=== PATIENT | male | born 1965 | race Caucasian/White ===

== ENCOUNTER → 2016-12-31 | Outpatient (CLI) | payer BC ==
[~2016-12-31] MED LIST: AMLO2.5T PO; ASPI81TA28 PO; DEXTTAB PO; TPRSR/50 PO
--- NOTE | 2017-01-01 05:29 | PAP/PSG TECHNICIAN REPORT ---
[facility] Embroidery Operator Polysomnogram Report Study name: None Report date: 01/01/2017 Study date: 12/31/2016 Referring Physician: JEANA RASHID PA-C Name: EDSON ADHIKARI Interpreting Physician: Kyle Pacheco M.D. Date of : 1965 Embroidery Operator: Joanna Humphreys [facility]. Sex: Male Age: 51 Study Type: PSG PAP Weight: 246 lbs Height: 51 years, Height 5' 7" BMI: 38.52 Medications: AMLODIPINE BESYLATE-VALSARTAN 5-160 MG, METOPROLOL 50 MG Patient History 51 yr-old male here for a new CPAP treatment study. He was found to be positive for DESTINEE via a home sleep study. He chose a Quattro Air full face mask size medium from [employer]. The test was started on room air and 4 CMH2O. He then requested to have more airflow, so the pressure was then increased to 6 CMH2O. ETCO2 testing was not utilized during this study. Room 1 Parameters Monitored NPSG: E1-M2, E2-M1, Fp1-M2, Fp2-M1, F3-M2, F4-M2, F4-M1, C3-M2, C4-M2, C4-M1, O1-M2, O2-M2, O2-M1, T3-M2, T4-M1, P3-M2, P4-M1, CHIN1, CHIN2, HR, EKG, Legs, PFLOW, SNOR, FLOW, CFLOW, Tidal Volume, THOR, ABDO, SpO2, PLTH, CPRESS, ETCO2 Wave, ETCO2, pH Sleep Architecture Sleep Stages Time at Lights Off 10:15:36 PM STAGES Time (min.) TST (%) Time at Lights On 4:33:06 AM Wake 180.5 -- Total Recording Time (TRT) 377.50 min. N1 15.0 8 Total Sleep Period (TSP) 332.0 min. N2 139.5 71 Total Sleep Time (TST) 197.0min. N3 21.0 11 Awake Time 180.5 min. REM 21.5 11 Wake after Sleep Onset 152.5 min. Sleep Efficiency (SE) 52 % Sleep Onset Latency (GAIL) 28.0 min. Number of Stage 1 Shifts None Awakenings 8 Stage Changes 48 Number of REM periods 2 REM 21.5 11 REM Latency 65.5 min. NREM 175.5 89 Body Position Analysis Supine Right Left Side Prone Vertical Total Sleep Time (min.) 236.1 110.5 0.0 110.53 0.0 0.0 Total Sleep Time (%) 44% 56% 0% 56 0% N/A% Total Sleep Time REM (min.) 5.0 16.5 0.0 None 0.0 0.0 Total Sleep Time NREM (min.) 81.5 94.0 0.0 None 0.0 0.0 Intermittent Wake (min.) 149.6 30.9 0.0 None 0.0 0.0 Total Sleep Period (%) 63% None None None None None Arousals Myoclonus (PLM) * Events Count Index Events Count Index Spontaneous 14 4 Events Awake (PLMW) 184 61.2 Respiratory 1 0.3 Events Asleep w/ Arousal (PLMA) 9 2.7 PLM 9 3 Events Asleep w/o Arousal (PLMS) 298 90.8 Snoring 2 1 Total Asleep 307 93.5 Total 26 8 Total 491 78 Respiratory Analysis * CA OA MA CH H RERA Total Count 0 0 0 0 6 0 6 Index 0.0 0.0 0.0 0 1.8 0 1.8 Mean Duration 0.0 0.0 0.0 0.00 18.1 0.0 18.1 Longest Duration 0.0 0.0 0.0 0.00 0.0 0.0 25.6 Respiratory Event Summary Total Supine ~Supine Right Left Prone REM NREM Apneas Count 0 0 0 0 N/A N/A 0 0 Index 0.0 0 0 0.0 N/A N/A 0 0 Hypopneas (4% Desat) Count 6 4 2 2 N/A N/A 2 4 Index 1.8 2.8 1 1.1 N/A N/A 5.6 1.4 Apneas & All Hypopneas Count 6 4 2 2 N/A N/A 2 4 Index 1.8 3 1 1 N/A N/A 5.6 1.4 Respiratory Events (Canvas Worker+All Hyp+RERA) Count 6 4 2 2 N/A N/A 2 4 Index 1.8 3 1 1.1 N/A N/A 5.6 1.4 Respiratory Related Arousal Count 1 4 0 0 N/A N/A 1 0 Index 0.3 1 0 0 N/A N/A 3 0 Snoring Analysis Supine Right Left Prone REM NREM Total Snore duration 12.9 min Snores count 259 310 N/A N/A 1 568 569 Snore mean duration 1.4 Sec Snores index 180 168 N/A N/A 2.8 194.2 173.3 TST with snoring (%) 6.5% Desaturation Event Summary: Minimum %SpO2 Event Count Mean/Min/Max Duration(sec.) Desaturation Index % Time In Bed > 90 58 26.8 / 4.5 / 60.0 11.7 86.2 86 - 90 4 14.8 / 7.5 / 24.8 5.1 13.6 81 - 85 0 N/A 0.0 0.1 76 - 80 0 N/A 0.0 0.0 71 - 75 0 N/A 0.0 0.0 66 - 70 0 N/A 0.0 0.0 61 - 65 0 N/A 0.0 0.0 56 - 60 0 N/A 0.0 0.0 51 - 55 0 N/A 0.0 0.0 < 50 0 N/A 0.0 0.0 Total REM NREM Awake <50% 0.0 min. 0.0 min. 0.0 min. 0.0 min. 51 - 60% 0.0 min. 0.0 min. 0.0 min. 0.0 min. 61 - 70% 0.0 min. 0.0 min. 0.0 min. 0.0 min. 71 - 80% 0.1 min. 0.0 min. 0.0 min. 0.1 min. 81 - 90% 47.6 min. 2.6 min. 32.8 min. 12.1 min. 91 - 100% 297.5 min. 18.9 min. 142.5 min. 136.2 min. Average 92 92 92 93 Minimum SpO2 79 84 87 79 Desaturation Event Index 9.4 8.4 5.1 14.0 # Desat. Events below 89% 12 2 5 5 Time(%) with Saturation below 89% 2.7 0.4 1.5 0.8 Time(min.) with Saturation below 89% 9.3 1.4 5.2 2.7 Time (mins) REM (mins) NREM (mins) % of TST SpO2 Below 90% 15 3 N12 7.9 SpO2 Below 88% 3 0 0 1 Heart Rate Analysis Min (bpm) Max (bpm) Average (bpm) Awake 55 127 74 NREM 55 99 69 REM 61 91 74 Overall 55 99 69 Supplemental O2 Values Minimum O2 level: None Value Start Time End Time Embroidery Operator Comments Mr. Adhikari slept in the right, left, and supine positions. No cardiac arrhythmias were noted. PLMs were noted. No bruxism noted. CPAP was initiated at +4 CMH2O and up-titrated to a level of +7 CMH2O, Cflex 2 which nearly eliminated all respiratory events and snoring. A Quattro Air full face mask size medium from [employer] was used during titration He awoke to use the restroom one time during the night. He woke around 2:15 to use the restroom. He then could not get back to sleep and took a couple of breaks with wearing the CPAP. Finally, at 4:30 am, he stated that he could not get back to sleep and wished to leave at that time. He stated that this can be normal to sleep for a while then be wide awake. Mr. Adhikari stated that he slept almost the same as usual. The final report will be interpreted and signed by a sleep physician. The completed physician report will then be placed in the patient medical record. Therapy Event: Therapy (cm H20) 4 6 7 Total Time at Pressure (min.) 0.2 234.3 143.0 TST at Pressure (min.) 0.0 190.5 6.5 # Periods 1 1 1 Sleep Onset (min.) N/A 27.8 0.0 REM Onset (min.) N/A 93.3 N/A Sleep Efficiency % 0 81 4 Wakefulness (%) 100.0 18.7 95.5 Wakefulness (min.) 0.2 43.8 136.5 NREM 1 (%) 0.0 6.2 0.3 NREM 1 (min.) 0.0 14.5 0.5 NREM 2 (%) 0.0 57.0 4.2 NREM 2 (min.) 0.0 133.5 6.0 NREM 3 (%) 0.0 9.0 0.0 NREM 3 (min.) 0.0 21.0 0.0 REM (%) 0.0 9.2 0.0 REM (min.) 0.0 21.5 0.0 # Arousals N/A 24 2 Arousal Index N/A 7.6 18.5 # Snore N/A 517 52 Snore Index N/A 162.8 480.8 AHI N/A 1.9 0.0 AHI Supine N/A 3.0 0.0 AHI Non-Supine N/A 1.1 0.0 NREM AHI N/A 1.4 0.0 REM AHI N/A 5.6 N/A RDI N/A 1.9 0.0 # Obstructive N/A 0 0 # Central Ap N/A 0 0 # Mixed N/A 0 0 # Hypopneas N/A 6 0 RERAS N/A 0 0 Total Respiratory Events N/A 6 0 Time Below SpO2 89.00% (min.) 0.0 6.6 0.0 Mean NREM SpO2 (%) N/A 92 91 Mean REM SpO2 (%) N/A 92 N/A Mean Sleep SpO2 (%) N/A 92 91 Min NREM SpO2 (%) N/A 87 90 Min REM SpO2 (%) N/A 84 N/A Position Supine (min.) 0.0 80.5 6.0 Position Non-supine (min.) 0.0 110.0 0.5 LM Index Sleep N/A 92.9 110.9 LM Index NREM N/A 92.7 110.9 LM Index REM N/A 94.9 N/A Mean Heart Rate (bpm) N/A 69 66 Min Heart Rate (bpm) N/A 55 56 CPAP REPORT Therapy Detail Time / Page # Comment CPAP 4 cm H2O Full Face Mask Flex Pressure Relief Humidifier on 10:09:23 PM / pg. 220 CPAP 6 cm H2O Full Face Mask Flex Pressure Relief Humidifier on 10:15:51 PM / pg. 233 INCREASED TO 6 CM AT THE REQUEST OF THE PT FOR MORE AIRFLOW CPAP 7 cm H2O Full Face Mask Flex Pressure Relief Humidifier on 2:10:07 AM / pg. 702 INCREASED FOR SNORING AND A COUPLE OF HYPOPNEAS
--- NOTE | 2017-01-02 09:04 | POLYSOMNOGRAPH REPORT ---
CLINICAL DATA: 51-year-old male with BMI of 38.52 referred by Taryn Pratt PA-C and Dr. Joe Garcia for a CPAP titration study. He had a home sleep study performed which showed sleep apnea of moderate severity and was referred for a CPAP titration study. He used a Quattro Air full facemask size medium from [employer]. SLEEP ARCHITECTURE: Total sleep period was 332 minutes. Total sleep time was 197 minutes divided between 175.5 minutes of non-REM sleep and 21.5 minutes of REM sleep. Sleep onset latency was 28 minutes. REM latency was 65.5 minutes. Sleep efficiency was severely reduced at 52%. Wake after sleep onset was 152.5 minutes. Sleep consisted of stage N1 8%, N2 71%, N3 11%, REM 11%. AROUSAL DATA: 26 arousals were recorded for an index of 8 per hour. PLM DATA: Markedly elevated limb movements during sleep were noted. There were 307 limb movements during sleep noted for an index of 93.5 per hour with arousal index of 2.7 per hour. RESPIRATORY DATA: The AHI was 1.8. There were 6 hypopneic episodes. The mean duration of hypopnea was 18.1 seconds. OXIMETRY DATA: Transient hypoxemia was seen. Oxygen sheyla was 84%. During REM sleep mean saturation was 92%. Time below 88% was 3 minutes. EKG: Heart rates ranged from 55-99 beats per minute. No arrhythmias were noted. COATING MANAGER'S COMMENTS: The patient slept in the right, left, and supine positions. The patient was started on CPAP and titrated up to his final pressure setting of 7 cm of water pressure, C-Flex setting #2. At the final pressure setting, the patient slept for 6.5 minutes with an AHI of 0. At 6 cm of water pressure, he slept for 190.5 minutes with an AHI of 1.9. He awoke at 2:15 AM to use the bathroom and then had a difficult time getting back to sleep. IMPRESSION: Moderate obstructive sleep apnea corrected with CPAP 7 cm water pressure, C-flex setting #2, [employer] Quattro Air full facemask size medium. RECOMMENDATIONS: The patient should be started on the above noted treatment regimen and seen back in followup within 90 days to document efficacy and compliance. [facility]
== END | disposition home or self-care (01) ==
LOC: C.NEUR 20:00
PROVIDERS: ATTEND Internal Medicine
DX: G47.33 Obstructive sleep apnea (adult) (pediatric) (principal)

== ENCOUNTER → 2018-03-02 | Outpatient (CLI) | payer BC ==
[2018-03-02 12:37] LABS: HEMOGLOBIN A1C 6.7 % (4.5-5.6)
[2018-03-02 12:41] LABS: ALT/SGPT 45 U/L (12-78); AST/SGOT 27 U/L (15-37); BLOOD UREA NITROGEN 17 mg/dl (7-18); CALCIUM 9.1 mg/dl (8.5-10.1); CARBON DIOXIDE 29 mmol/L (21-32); CHOLESTEROL 193 mg/dl (0-200); CREATININE 0.82 mg/dl (0.60-1.40); GLUCOSE 124 mg/dl (70-99); SODIUM 138 mmol/L (136-145)
[2018-03-02 12:42] LABS: ALKALINE PHOSPHATASE 81 U/L (45-117); LDL CHOLESTEROL CALCULATED 116 mg/dl; TOTAL PROTEIN 7.6 gm/dl (6.4-8.2)
== END | disposition home or self-care (01) ==
LOC: C.LAB 10:16
PROVIDERS: ATTEND Physician Assistant Medical
DX: Z00.00 Encounter for general adult medical examination without abnormal findings (principal); I10 Essential (primary) hypertension; E78.5 Hyperlipidemia, unspecified; R73.03 Prediabetes

== ENCOUNTER 2024-05-10 23:14 | Inpatient (IN) ==
[2024-05-10] MEDS: SODIUM CHLORIDE 0.9% 1,000 ML IV ONE (23:31)
[2024-05-10] MEDS: ONDANSETRON INJ 2 MG/ML 2 ML VIAL IV STA (23:31)
[2024-05-10 23:50] LABS: Basophils # (auto) 0.04 K/uL (0.00-0.20); Basophils % (auto) 0.2 %; Eosinophils # (auto) 0.01 K/uL (0.00-0.50); Eosinophils % (auto) 0.1 %; Hematocrit (blood only) 48.1 % (42.0-52.0); Hemoglobin 16.6 g/dl (14.0-18.0); Immature Granulocytes # (auto) 0.07 K/uL (0.01-0.20); Immature Granulocytes % (auto) 0.4 %; Lymphocytes # (auto) 1.36 K/uL (1.20-3.40); Lymphocytes % (auto) 7.9 %; Mean Corpuscular Hemoglobin 27.3 pg (25.0-34.0); Mean Corpuscular Hgb Conc 34.5 g/dL (32.0-36.0); Mean Corpuscular Volume 79.1 fL (80.0-100.0); Mean Platelet Volume 10.2 fL (9.4-12.4); Monocytes # (auto) 1.12 K/uL (0.11-0.59); Monocytes % (auto) 6.5 %; Neutrophils # (auto) 14.55 K/uL (1.40-6.50); Neutrophils % (auto) 84.9 %; Platelet Count 214 K/uL (130-400); RDW Coefficient of Variation 13.6 % (11.5-14.5); RDW Standard Deviation 38.5 fL (36.4-46.3); Red Blood Count 6.08 M/uL (4.70-6.10); White Blood Count 17.15 K/ul (4.8-10.8)
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
[2024-05-11 00:03] LABS: Albumin Globulin Ratio 1.7 (0.9-2); Albumin Level 5.1 gm/dl (3.4-5.0); BUN Creatinine Ratio 29.6 (10-20); Bilirubin,Total 1.1 mg/dl (0.2-1.0); Calcium 10.5 mg/dl (8.6-10.3); Est GFR (Non-African American) 96.6 ml/min; Potassium 3.9 mmol/L (3.5-5.1); Total Protein 8.1 gm/dl (6.0-8.3)
[2024-05-11 00:09] LABS: Troponin I High Sensitivity 4.5 pg/ml (0-20)
[2024-05-11] MEDS: OPTIRAY 320 100ml IV ONE (00:17)
[2024-05-11 00:25] LABS: INR 1.1 (0.9-1.1); Prothrombin Time 11.4 Seconds (9.0-12.0)
[2024-05-11] MEDS: ACETAMINOPHEN 1,000 MG/100 ML VIAL IV STA (00:34)
[2024-05-11 00:35] LABS: Adenovirus PCR Not Detected (NotDetected); Bordetella parapertussis PCR Not Detected (NotDetected); Bordetella pertussis PCR Not Detected (NotDetected); Chlamydia pneumoniae PCR Not Detected (NotDetected); Coronavirus 229E PCR Not Detected (NotDetected); Coronavirus CoV-2 (COVID19)PCR Not Detected (NotDetected); Coronavirus HKU1 PCR Not Detected (NotDetected); Coronavirus NL63 PCR Not Detected (NotDetected); Coronavirus OC43PCR Not Detected (NotDetected); Human Metapneumovirus PCR Not Detected (NotDetected); Influenza A PCR Not Detected (NotDetected); Influenza B PCR Not Detected (NotDetected); Mycoplasma pneumoniae PCR Not Detected (NotDetected); Parainfluenza Virus 1 PCR Not Detected (NotDetected); Parainfluenza Virus 2 PCR Not Detected (NotDetected); Parainfluenza Virus 3 PCR Not Detected (NotDetected); Parainfluenza Virus 4 PCR Not Detected (NotDetected); Respiratory Syncytial VirusPCR Not Detected (NotDetected); Rhinovirus/Enterovirus PCR Not Detected (NotDetected)
[2024-05-11 01:16] LABS: Appearance Urine Clear (Clear); Bacteria Urine Automated None Seen (None Seen); Bilirubin Urine Negative (Negative); Blood Urine Negative (Negative); Cast Urine Automated 0-2 /lpf (0-2); Color Urine Yellow; Epithelial Cell Urine Auto 0-2 /hpf (0-2); Glucose Urine UA 3+ (Negative); Ketones Urine 2+ (Negative); Leukocyte Esterase Urine Negative (Negative); Nitrite Urine Negative (Negative); Protein Urine Trace (Negative); RBC Urine Automated 0-2 /hpf (0-2); Specific Gravity Urine > 1.045 (1.000-1.030); Urobilinogen Urine Negative (Negative); WBC Urine Automated 0-5 /hpf (0-5)
--- NOTE | 2024-05-11 01:41 | CT Scan Report ---
Exam(s): CT ABDOMEN + PELVIS With Contrast IV Amt: 91 ml optiray 320 EXAM: CT Abdomen and Pelvis With Intravenous Contrast CLINICAL HISTORY: Reason for exam: generalized abdominal pain; vomiting. TECHNIQUE: Axial computed tomography images of the abdomen and pelvis with intravenous contrast. CTDI is 27 mGy and DLP is 1363 mGy-cm. Automated exposure control was utilized for the study. A dose lowering technique was utilized adhering to the principles of ALARA. CONTRAST: Patient received 91 ml optiray 320 of IV contrast COMPARISON: No relevant prior studies available. FINDINGS: Lung bases: Trace amount of subsegmental atelectasis in the left lung base. ABDOMEN: Liver: There is fatty infiltration of the liver. No focal liver lesion is seen. Gallbladder and bile ducts: Unremarkable. No calcified stones. No ductal dilation. Pancreas: Unremarkable. No mass. No ductal dilation. Spleen: Unremarkable. No splenomegaly. Adrenals: Unremarkable. No mass. Kidneys and ureters: Unremarkable. No solid mass. No hydronephrosis. Stomach and bowel: There is a 2.5 cm left inguinal hernia. A short segment of the sigmoid colon dips into the upper 2 cm of this hernia. No signs of obstruction or acute inflammation at that point. Mild diverticulosis of the sigmoid colon. No evidence of acute diverticulitis. PELVIS: Appendix: The appendix is dilated measuring 13 mm with mild surrounding inflammation consistent with acute appendicitis. No signs of rupture or abscess. Bladder: Unremarkable. No mass. Reproductive: Unremarkable as visualized. ABDOMEN and PELVIS: Intraperitoneal space: Unremarkable. No free air. No significant fluid collection. Bones/joints: Mild to moderate degenerative changes throughout the spine. No acute fracture or subluxation. Soft tissues: See above. Vasculature: Unremarkable. No abdominal aortic aneurysm. Lymph nodes: Unremarkable. No enlarged lymph nodes. IMPRESSION: The appendix is dilated measuring 13 mm with mild surrounding inflammation consistent with acute appendicitis. No signs of rupture or abscess. Communications: Call Doctor Appendicitis Electronically signed by: Honorio Pastor MD 05/11/24 01:41 AM
[2024-05-11] MEDS: fentaNYL citrate PF 100 MCG/2 ML VIAL IV STA (01:55)
[2024-05-11] MEDS: PIPERACILLIN/TAZOBACTAM 4.5 GM/100 ML BAG IV ONE (01:58)
[2024-05-11] MEDS ORDERED: ONDANSETRON INJ 2 MG/ML 2 ML VIAL IV PRN ×2 (02:00→08:24)
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
[2024-05-11] MEDS ORDERED: Nursing to Pharmacy Communication SCH (02:15)
[2024-05-11] MEDS: MoRPHine SULFATE 4 MG/ML 1 ML CARP\\VIAL IV PRN (02:19)
[2024-05-11] MEDS: SODIUM CHLORIDE 0.9% 1,000 ML IV SCH (02:19)
[2024-05-11] MEDS ORDERED: GLUCAGON FOR INJ 1 MG VIAL SQ PRN (03:53)
[2024-05-11] MEDS ORDERED: GLUCOSE 40% GEL 15 GM TUBE PO PRN (03:53)
[2024-05-11] MEDS ORDERED: CARBOHYDRATES FOR HYPOGLYCEMIA PO PRN (03:53)
[2024-05-11] MEDS ORDERED: GLUCOSE 10 TAB/TUBE PO PRN (03:53)
[2024-05-11] MEDS ORDERED: DEXTROSE 50% 50 ML SYRINGE IV PRN (03:53)
[2024-05-11] MEDS: ACETAMINOPHEN 1,000 MG/100 ML VIAL IV PRN (04:05)
[2024-05-11] MEDS: PIPERACILLIN/TAZOBACTAM 4.5 GM in DEXTROSE 5% MINI-B 100 ML IV SCH (06:00)
[2024-05-11] MEDS: INSULIN ASPART PER UNIT CHARGE SC SCH ×2 (06:14→17:08)
--- NOTE | 2024-05-11 06:50 | XRay Report ---
XR chest 1V portable HISTORY: 58 years-old Male pre-op preoperative exam COMPARISON: 01/09/2016 TECHNIQUE: AP view of the chest FINDINGS: Cardiac silhouette is mildly enlarged. No pneumothorax or pleural effusion. The lungs are clear. Bone s appear grossly intact. IMPRESSION: No acute process. ACT 112: Negative or not required by law. The above report was generated using voice recognition software. It may contain grammatical, syntax o r spelling errors. Electronically signed by: Fahran Chavez M.D. 05/11/2024 6:49 AM
[2024-05-11] MEDS ORDERED: MIDAZOLAM HCL 1 MG/ML 2ML VIAL ONE (08:06)
[2024-05-11] MEDS ORDERED: fentaNYL citrate PF 100 MCG/2 ML VIAL ONE ×2 (08:07→10:07)
[2024-05-11] MEDS ORDERED: PROMETHAZINE HCL 6.25 MG in SODIUM CHLORIDE 0.9% 50 ML IV PRN (08:24)
[2024-05-11] MEDS ORDERED: ePHEDrine sulfate 50 MG/ML AMP IV PRN (08:24)
[2024-05-11] MEDS ORDERED: ATROPINE SULFATE 0.1 MG/ML 10ML SYR IV PRN (08:24)
[2024-05-11] MEDS ORDERED: fentaNYL citrate PF 100 MCG/2 ML VIAL IV PRN (08:24)
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
[2024-05-11] MEDS: METOPROLOL SUCC 50MG EXT REL TAB PO SCH (08:37)
[2024-05-11] MEDS: LANTUS PER UNIT CHARGE SQ SCH (08:37)
[2024-05-11] MEDS ORDERED: ONDANSETRON INJ 2 MG/ML 2 ML VIAL ONE (10:03)
[2024-05-11] MEDS ORDERED: SUGAMMADEX SODIUM 200 MG/2 ML VIAL IV ONE (10:03)
[2024-05-11] MEDS ORDERED: DEXAMETHASONE SOD INJ 4 MG/ML VIAL ONE (10:03)
[2024-05-11] MEDS ORDERED: ROCURONIUM BROMIDE 10 MG/ML 5 ML VIAL IV ONE (10:03)
[2024-05-11] MEDS ORDERED: PROPOFOL IV EMULSION 10 MG/ML 20 ML VIAL IV ONE (10:03)
[2024-05-11] MEDS ORDERED: SUCCINYLCHOLINE CHLORIDE 20 MG/ML 10 ML VIAL IV ONE (10:04)
[2024-05-11] MEDS ORDERED: LIDOCAINE 2% 2 ML VIAL/AMP(20MG/ML) INFIL ONE (10:04)
[2024-05-11] MEDS: BUPIVACAINE 0.5 % 5 MG/1 ML MPF 30ML VIAL ONE (10:31)
--- NOTE | 2024-05-11 10:49 | Operative Report ---
PG Post Operative Report Pre & Post Diagnosis Operation Date: 05/11/24 07:00 Pre-Op Diagnosis: Acute Appendicitis Post-Op Diagnosis: Acute Appendicitis I identified the patient and participated in the time-out.: Yes Procedure Operation Date: 05/11/24 07:00 Actual Procedures p Robotic Laparoscopic Appendectomy(Not Applicable) - Kei Matamoros DO Surgeon Kei Matamoros DO [employer] Performance Engineer Rudolph Torrez NP Estimated Blood Loss 7 Findings See Below Acute gangrenous appendicitis Specimens Appendix Drains None Anesthesia Type General Complications None Indications Patient presented with physical exam and CT findings for acute appendicitis Description of Procedure The patient was brought back to the operating room and placed on the operating table in supine position. He was connected to cardiac and oxygen monitoring, SCDs were applied to bilateral lower extremities. General anesthesia was administered and a secure airway was established. Steve catheter was inserted. The abdomen was prepped and draped in typical sterile fashion. The location for 3 robotic trocar sites was mapped out and marked on the patient's abdomen with a sterile marking pen. Local anesthetic was injected at all sites prior to incision and trocar insertion. Pneumoperitoneum was established to local pressure 15 mmHg using a Veress needle at the incision just lateral to the umbilicus. Once this pressure was reached, an 8 mm robotic trocar was inserted using direct visualization with the laparoscope and Visiport. 2 additional tr ocars were inserted using direct visualization at the right upper quadrant and left lower quadrant. A 12 mm robotic trocar was used at the right upper quadrant while an 8 mm robotic trocar was used at the left lower quadrant. The OR table was placed in left side down and Trendelenburg position. The robot was docked and targeted. Instruments were loaded. Once at the console, the appendix was identified in the right lower quadrant surrounded by fibrinous exudate. The appendix appeared to be thickened and necrotic. The appendix was mildly dissected away from the retrocecal area. A window was made between the mesoappendix and the base of the appendix. The base of the appendix was ligated and transected using a white load robotic stapler. The mesoappendix was ligated and transected using a vessel sealer. There was bleeding from the appendiceal artery with this so a white loaded stapler was used to ligate and control this vessel further. The right lower quadrant was copiously irrigated and suctioned to clear her blood away. The staple lines were checked thoroughly for bleeding. There was no further bleeding. The appendix was placed in an Endo Catch bag and removed from the abdomen. This was sent in a label container to pathology for further analysis. Additional stable clips were removed from the area. The right lower quadrant was checked multiple times again and there was no bleeding CO2 insufflation was discontinued. Omentum was used to cover the area and pneumoperitoneum was evacuated as instruments were also removed. The robot was undocked. The patient was returned to neutral position. The right upper quadrant 12 mm port site was closed at the level of the fascia with 0 Vicryl sutures. Additional local anesthetic was injected at all 3 port sites. The skin at all 3 incisions was closed using 4-0 Vicryl suture. The abdomen was wiped clean and dried. Each incision was dressed with Dermabond. The patient tolerated the procedure well. He was awakened from anesthesia, the Steve catheter was removed and he was transferred to recovery in stable condition. I attest to the content of the Intraoperative Record and any orders documented therein. Any exceptions are noted below.
[2024-05-11] MEDS ORDERED: oxyCODONE HCL IR 5 MG TAB (IMMEDIATE RELEASE) PO PRN ×2 (11:41)
[2024-05-11] MEDS ORDERED: MoRPHine SULFATE 4 MG/ML 1 ML CARP\\VIAL IV PRN (11:41)
[2024-05-11] MEDS ORDERED: MoRPHine SULFATE 2 MG/ML CARP IV PRN (11:41)
--- NOTE | 2024-05-11 11:57 | Anesthesiology Progress Note ---
Date of Service May 11, 2024 Anesthesia Post Procedure Vital Signs Vital Signs: Temp Pulse Pulse Pulse Resp BP BP 05/11/24 11:45 37.3 C 83 16 124/77 05/11/24 11:35 85 15 127/78 05/11/24 11:25 87 21 103/60 05/11/24 11:15 90 17 127/76 05/11/24 11:05 92 H 16 138/77 05/11/24 10:58 36.4 C L 89 16 134/77 05/11/24 08:17 36.8 C 68 18 139/84 05/11/24 07:35 05/11/24 07:16 36.5 C 83 16 151/75 H 05/11/24 03:30 05/11/24 03:30 05/11/24 03:30 36.4 C L 71 16 153/83 H 05/11/24 03:03 72 16 159/94 H 05/11/24 02:00 69 13 149/89 H 05/11/24 01:03 71 20 157/91 H 05/11/24 00:33 84 21 159/101 H 05/11/24 00:00 75 18 162/88 H 05/10/24 23:39 74 15 05/10/24 23:39 68 05/10/24 23:31 73 18 05/10/24 23:19 36.5 C 85 16 148/93 H Pulse Ox O2 Del Method O2 Flow Rate 05/11/24 11:45 93 Nasal Cannula 3 05/11/24 11:35 94 Nasal Cannula 2 05/11/24 11:25 91 Room Air 05/11/24 11:15 93 Oxymask 4 05/11/24 11:05 95 Oxymask 4 05/11/24 10:58 97 Oxymask 6 05/11/24 08:17 97 Room Air 05/11/24 07:35 Room Air 05/11/24 07:16 96 Room Air 05/11/24 03:30 CPAP 05/11/24 03:30 CPAP 05/11/24 03:30 97 Room Air 05/11/24 03:03 97 Nasal Cannula 2 05/11/24 02:00 98 Room Air 05/11/24 01:03 99 Nasal Cannula 2 05/11/24 00:33 98 Room Air 06/18/24 00:00 99 Nasal Cannula 2 05/10/24 23:39 98 Room Air 05/10/24 23:39 05/10/24 23:31 98 Room Air 05/10/24 23:19 99 Room Air Pain Intensity Abdomen: Pain Intensity: 3 Transfer of Care Handoff Completed per policy Notes Mental Status: alert / awake / arousable Patient Amnestic to Procedure: Yes Nausea / Vomiting: adequately controlled Pain: adequately controlled Airway Patency, RR, SpO2: stable & adequate BP & HR: stable & adequate Hydration State: stable & adequate Anesthetic Complications: no major complications apparent
--- NOTE | 2024-05-11 12:49 | Electrocardiogram Report ---
Test Reason : Blood Pressure : / mmHG Vent. Rate : 074 BPM Atrial Rate : 074 BPM P-R Int : 180 ms QRS Dur : 102 ms QT Int : 428 ms P-R-T Axes : 060 059 045 degrees QTc Int : 475 ms Normal sinus rhythm with sinus arrhythmia Normal ECG When compared with ECG of 11-MAY-2024 01:58, (unconfirmed) No significant change was found Confirmed by Joe Aleman ([id number]) on 05/11/2024 12:49:18 PM Referred By: REFERRED SELF Confirmed By:Joe Aleman
--- NOTE | 2024-05-11 12:51 | Electrocardiogram Report ---
Test Reason : Blood Pressure : / mmHG Vent. Rate : 078 BPM Atrial Rate : 078 BPM P-R Int : 186 ms QRS Dur : 094 ms QT Int : 408 ms P-R-T Axes : 054 038 039 degrees QTc Int : 465 ms Normal sinus rhythm with sinus arrhythmia Normal ECG When compared with ECG of 09-JAN-2016 21:58, Incomplete right bundle branch block is no longer Present Confirmed by Joe Aleman ([id number]) on 05/11/2024 12:50:49 PM Referred By: REFERRED SELF Confirmed By:Joe Aleman
--- NOTE | 2024-05-11 18:01 | History & Physical Bridge Note ---
Date of Service May 11, 2024 History & Physical Bridge Note I have examined the patient, reviewed the History & Physical and in the interval since the performance of the History & Physical I have noted the following changes of clinical significance: Pt seen in the evening post-op. has some very mild soreness in abdomen but feels much better than when he came in. Denies SOB, CP, nausea. Just ate liquids for dinner. No flatus. Vitals reviewed NAD, AAOx3 RRR no mgr CTAB no wcr Abd incisions with dermabond in place, +BS soft NT Ext no edema 58 yo male here with acute appendicitis. DMII_continue insulin regimen as ordered DESTINEE-ensure gets CPAP for this evening COntinue antibiotics if desired by Surgery but can likely be stopped Can dc maintenance IVFs as he is tolerating po and BPs mildly elevated, making urine HTN-continue home metoprolol and continue to hold amlodipine and valsartan HL-resume statin
[2024-05-11] MEDS: ACETAMINOPHEN 325 MG TAB PO PRN (20:35)
[2024-05-12 06:43] LABS: Calcium 9.3 mg/dl (8.6-10.3); Est GFR (African American) 112.5 ml/min; Est GFR (Non-African American) 97.1 ml/min; Potassium 3.7 mmol/L (3.5-5.1)
[2024-05-12 06:44] LABS: Basophils # (auto) 0.03 K/uL (0.00-0.20); Basophils % (auto) 0.2 %; Hematocrit (blood only) 42.5 % (42.0-52.0); Hemoglobin 14.4 g/dl (14.0-18.0); Immature Granulocytes # (auto) 0.09 K/uL (0.01-0.20); Immature Granulocytes % (auto) 0.6 %; Lymphocytes # (auto) 1.17 K/uL (1.20-3.40); Lymphocytes % (auto) 7.9 %; Mean Corpuscular Hemoglobin 27.7 pg (25.0-34.0); Mean Corpuscular Hgb Conc 33.9 g/dL (32.0-36.0); Mean Corpuscular Volume 81.7 fL (80.0-100.0); Mean Platelet Volume 10.5 fL (9.4-12.4); Monocytes % (auto) 11.4 %; Neutrophils # (auto) 11.86 K/uL (1.40-6.50); Neutrophils % (auto) 79.9 %; Platelet Count 182 K/uL (130-400); RDW Coefficient of Variation 13.5 % (11.5-14.5); RDW Standard Deviation 39.7 fL (36.4-46.3); White Blood Count 14.85 K/ul (4.8-10.8)
--- NOTE | 2024-05-12 08:04 | Surgery Progress Note ---
<Statement entered by Kei Matamoros DO - 05/12/24 17:35> I have seen and examined this patient with the surgical PA. I agree with this plan, patient will be discharged home. Date of Service May 12, 2024 Assessment & Plan (1) History of laparoscopic appendectomy: Plan: POD 1 lap appy tolerating clears keep on for breakfast advance to fulls for lunch small flatus yesterday encouraged ambulation in halls VSS port sites CDI dermabond WBC downtrending 14 (17) Will contin. IV antbx while in house Admission and Anticipated Discharge Date Admission Date: May 11, 2024 Subjective pt denies abd pain, SOB, CP, N/V passing sm. flatus yesterday Review of Systems Constitutional: no fever and no chills Respiratory: no dyspnea Cardiovascular: no chest pain Gastrointestinal: no abdominal pain, no nausea and no vomiting Musculoskeletal: no muscle weakness Physical Exam Physical Exam: alert oriented Constitutional: well developed, cooperative and comfortable; no acute distress Respiratory: normal respiratory effort and able to speak in complete sentences; no respiratory distress Cardiovascular: Rate/Rhythm: regular rate Gastrointestinal (Abdomen): Inspection/Auscultation: + abdominal surgical incision (CDI dermabond ); abdomen not distended Percussion/Palpation: abdomen soft Results & Data Vital Signs (Past 12 Hours) Vital Signs Temp Pulse Pulse Resp BP Pulse Ox O2 Del Method 05/12/24 07:14 97.9 F 77 16 144/78 H 96 CPAP 05/12/24 03:42 81 14 97 05/12/24 03:00 98.1 F 71 18 152/81 H 96 CPAP 05/12/24 00:34 80 18 97 05/11/24 23:11 98.4 F 82 18 149/77 H 96 Room Air FiO2 05/12/24 07:14 05/12/24 03:42 21 05/12/24 03:00 05/12/24 00:34 21 05/11/24 23:11 Results CBC w Diff Results: RBC 5.20 M/uL (4.70-6.10) 05/12/24 WBC 14.85 K/ul (4.8-10.8) H 05/12/24 Hgb 14.4 g/dl (14.0-18.0) 05/12/24 Hct 42.5 % (42.0-52.0) 05/12/24 MCV 81.7 fL (80.0-100.0) 05/12/24 MCH 27.7 pg (25.0-34.0) 05/12/24 MCHC 33.9 g/dL (32.0-36.0) 05/12/24 RDW Standard Deviation 39.7 fL (36.4-46.3) 05/12/24 RDW Coefficient of Variation 13.5 % (11.5-14.5) 05/12/24 Plt Count 182 K/uL (130-400) 05/12/24 MPV 10.5 fL (9.4-12.4) 05/12/24 Neutrophils (%) (Auto) 79.9 % 05/12/24 Lymphocytes (%) (Auto) 7.9 % 05/12/24 Monocytes # (Auto) 1.70 K/uL (0.11-0.59) H 05/12/24 Eosinophils # (Auto) 0.00 K/uL (0.00-0.50) 05/12/24 Immature Granulocyte % (Auto) 0.6 % 05/12/24 Neutrophils # (Auto) 11.86 K/uL (1.40-6.50) H 05/12/24 Lymphocytes # (Auto) 1.17 K/uL (1.20-3.40) L 05/12/24 Monocytes # (Auto) 1.70 K/uL (0.11-0.59) H 05/12/24 Eosinophils # (Auto) 0.00 K/uL (0.00-0.50) 05/12/24 Basophils # (Auto) 0.03 K/uL (0.00-0.20) 05/12/24 Immature Granulocyte # (Auto) 0.09 K/uL (0.01-0.20) 4 PG Care Time/CCT Total # of Minutes Spent Total Time Spent with Patient: Total time spent is greater than 50% in coordination of care (as documented) at patient's floor/unit and/or counseling patient: Coding Level of Care Code 39707 Post Operative Follow-Up Diagnoses History of laparoscopic appendectomy Z90.49
[2024-05-12] MEDS: ROSUVASTATIN CALCIUM 5 MG TAB PO SCH (08:25)
--- NOTE | 2024-05-12 11:30 | Communication Note ---
Date of Service: May 12, 2024 Pt seen as he was headed out the door after discharge by surgery. Doing well, pain controlled, no acute needs. Medically stable for discharge
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
== END 2024-05-12 11:40 | disposition home or self-care (01) | DRG 399 ==
LOC: ED 23:14 → SUATTDRO 05-11 02:14 → 3E 05-11 02:14
DX: K35.80 Unspecified acute appendicitis; G47.33 Obstructive sleep apnea (adult) (pediatric); I10 Essential (primary) hypertension; Z68.35 Body mass index [BMI] 35.0-35.9, adult; E11.9 Type 2 diabetes mellitus without complications; Z79.4 Long term (current) use of insulin; E66.9 Obesity, unspecified; E78.5 Hyperlipidemia, unspecified; Z79.85 Long-term (current) use of injectable non-insulin antidiabetic drugs